=== PATIENT | female | born 1965 | race Caucasian/White ===

== ENCOUNTER 2017-11-11 11:32 | Outpatient (CLI) | payer BC | END 2017-11-11 11:33 | disposition home or self-care (01) | LOC: BICMAMMO 11:32 | PROVIDERS: ATTEND Family Medicine | DX: Z12.31 Encounter for screening mammogram for malignant neoplasm of breast (principal); Z80.3 Family history of malignant neoplasm of breast | CPT/HCPCS: 77063; 77067 ==

== ENCOUNTER 2021-09-26 10:02 | Outpatient (CLI) | payer BC | END 2021-09-26 10:03 | disposition home or self-care (01) | LOC: BICMAMMO 10:02 | PROVIDERS: ATTEND Family Medicine | DX: Z12.31 Encounter for screening mammogram for malignant neoplasm of breast (principal); Z80.3 Family history of malignant neoplasm of breast | CPT/HCPCS: 77063; 77067 ==

== ENCOUNTER 2022-10-30 07:33 | Outpatient (CLI) | payer BC | END 2022-10-30 07:34 | disposition home or self-care (01) | LOC: ULT 07:33 | PROVIDERS: ATTEND Family Medicine | DX: N76.0 Acute vaginitis (principal); J20.9 Acute bronchitis, unspecified; R10.84 Generalized abdominal pain; N85.8 Other specified noninflammatory disorders of uterus; R93.2 Abnormal findings on diagnostic imaging of liver and biliary tract | CPT/HCPCS: 71046; 76700; 76856 ==

== ENCOUNTER 2022-11-25 09:06 | Outpatient (CLI) | payer BC ==
[2022-11-25] MEDS ORDERED: Iopamidol 370 76% 100 ML VIAL ONE (09:39)
[2022-11-25] MEDS ORDERED: diphenhydrAMINE 50 MG/ML VIAL ONE (09:55)
[2022-11-25] MEDS ORDERED: diphenhydrAMINE 50 MG/ML VIAL IVPB SCH (10:45)
== END 2022-11-25 09:07 | disposition home or self-care (01) ==
LOC: BICCT 09:06 → CT 09:07
PROVIDERS: ATTEND Family Medicine
DX: R10.84 Generalized abdominal pain (principal)
CPT/HCPCS: 74177; 82565; J1200; Q9967

== ENCOUNTER 2023-09-25 12:11 | Outpatient (CLI) | payer BC | END 2023-09-25 12:12 | disposition home or self-care (01) | LOC: BICMAMMO 12:11 | PROVIDERS: ATTEND Family Medicine | DX: Z12.31 Encounter for screening mammogram for malignant neoplasm of breast (principal); Z80.3 Family history of malignant neoplasm of breast | CPT/HCPCS: 77063; 77067 ==